=== PATIENT | male | born 1950 | race Caucasian/White ===

== ENCOUNTER 2023-12-09 07:09 | Day surgery (SDC) | payer MEDICARE, BC ==
[2023-12-09] MEDS ORDERED: fentaNYL 100 MCG/2 ML SDV IV ONE (07:10)
[2023-12-09] MEDS ORDERED: Midazolam 1 MG/ML 2 ML SDV IV ONE (07:10)
[2023-12-09] MEDS ORDERED: Sodium Chloride 0.9% 10 ML Syringe FLUSH PRN (07:30)
[2023-12-09] MEDS: Lactated Ringers 1,000 ML IV SCH (08:10)
[2023-12-09] MEDS: ceFAZolin 2 GM Vial IVPUSH ONE (08:38)
[2023-12-09] MEDS: Lidocaine 1% with EPINEPHrine 1:100,000 20 ML MDV INJECT ONE (08:50)
[2023-12-09] MEDS: Bupivacaine 0.5% 30 ML SDV INJECT ONE (08:50)
[2023-12-09] MEDS: Sodium Bicarbonate 8.4% 50 MEQ/50 ML Syringe ONE (08:50)
[2023-12-09 11:41] VITALS: BP 127/83; PULSE 62
== END 2023-12-09 10:12 | disposition home or self-care (01) ==
LOC: FB.SDS 07:09
PROVIDERS: ATTEND Surgery
DX: D18.01 Hemangioma of skin and subcutaneous tissue (principal); R22.2 Localized swelling, mass and lump, trunk; E78.5 Hyperlipidemia, unspecified; H25.13 Age-related nuclear cataract, bilateral; Z87.891 Personal history of nicotine dependence; Z79.899 Other long term (current) drug therapy; Z88.8 Allergy status to other drugs, medicaments and biological substances; Z90.49 Acquired absence of other specified parts of digestive tract
CPT/HCPCS: 00400; 24071; 88305; 99100; J0665; J0690; J2250; J3010; J7120